=== PATIENT | male | born 1965 | race Two or more races ===

== ENCOUNTER 2018-10-08 09:57 | Emergency (ER) | payer OTHER ==
[2018-10-08 10:03] VITALS: BMI 29.2
[2018-10-08] MEDS ORDERED: ONDANSETRON 4 MG/2 ML VIAL IVPUSH ONE (10:09)
[2018-10-08] MEDS ORDERED: KETOROLAC TROMETHAMINE 30 MG/1 ML VIAL IVPUSH ONE (10:09)
[2018-10-08] MEDS ORDERED: SODIUM CHLORIDE 1,000 ML IV STA (10:09)
[2018-10-08] MEDS ORDERED: ONDANSETRON 4 MG/2 ML VIAL ONE (10:30)
[2018-10-08] MEDS ORDERED: KETOROLAC TROMETHAMINE 30 MG/1 ML VIAL ONE (10:30)
[2018-10-08 10:48] LABS: BASO % 0.9 % (0-2.0); EOS % 1.9 % (0-4.5); HEMATOCRIT 45.5 % (35.4-49); HEMOGLOBIN 16.3 GM/dL (11.7-16.9); MCH 30.8 pg (25.7-33.7); MCHC 35.8 g/dl (32.0-35.9); MEAN PLT VOLUME 7.2 fl (7.5-11.1); MONO % 4.4 % (3.8-10.2); NEUT % 63.8 % (42.8-82.8); PLATELET COUNT 189 K/MM3 (134-434); RBC 5.29 M/mm3 (4.00-5.60); RDW 13.4 % (11.9-15.9); WHITE BLOOD COUNT 7.2 K/mm3 (4.0-10.0)
[2018-10-08 11:22] LABS: ALBUMIN 4.3 g/dl (3.4-5.0); ALK PHOS 77 U/L (45-117); ANION GAP 8 MMOL/L (8-16); BILIRUBIN,TOTAL 0.9 mg/dL (0.2-1); BLOOD UREA NITROGEN 23 mg/dL (7-18); CALCIUM 8.9 mg/dL (8.5-10.1); CHLORIDE 104 mmol/L (98-107); CO2 29 mmol/L (21-32); CREATININE 1.2 mg/dL (0.55-1.3); GLUCOSE,RANDOM 128 mg/dL (74-106); POTASSIUM 4.3 mmol/L (3.5-5.1); SGOT/AST 32 U/L (15-37); SGPT/ALT 47 U/L (13-61); SODIUM 141 mmol/L (136-145); TOT PROT 7.4 g/dl (6.4-8.2); URINE APPEARANCE CLOUDY; URINE BILIRUBIN NEGATIVE (<2.0 mg/dL); URINE COLOR YELLOW; URINE GLUCOSE (UA) NEGATIVE (NEGATIVE); URINE KETONE NEGATIVE (NEGATIVE); URINE LEUK ESTERASE NEGATIVE (NEGATIVE); URINE NITRITE NEGATIVE (NEGATIVE); URINE PROTEIN 1+ (NEGATIVE); URINE UROBILINOGEN NEGATIVE mg/dL (0.2-1.0)
[2018-10-08] MEDS ORDERED: HYDROmorphone HCL CARPU-JECT 2 MG/1 ML DISP.SYRIN IVPUSH ONE (11:48)
[2018-10-08 11:57] LABS: URIC ACID CRYSTALS RARE /hpf (NONE SEEN); URINE MUCUS FEW
[2018-10-08] MEDS ORDERED: HYDROmorphone HCl 2 MG/ML VIAL ONE (12:05)
--- NOTE | 2018-10-08 12:17 | PDOC ---
History of Present Illness - General Chief Complaint: Pain, Acute Stated Complaint: KIDNEY STONE Time Seen by Provider: 10/08/18 10:08 History Source: Patient Exam Limitations: No Limitations - History of Present Illness Travel History: No Initial Comments: 10/08/18 12:10 52-year-old male presents to the emergency room for evaluation of right flank pain, dysuria and mild hematuria since this morning worsening in severity. Patient states history of right renal colic and is followed by Dr. bearden and has history of lithotripsy(2004) and stent placement (2007). Last stone was in 2011. Patient denies fever, chills with states mild nausea. Timing/Duration: reports: constant, getting worse Quality: reports: moderate, sharpness Abdominal Pain Onset Location: reports: flank Pain Radiation: reports: back Activities at Onset: reports: none Aggravating Factors: improves with: None Alleviating Factors: improves with: None Past History - Travel Traveled outside of the country in the last 30 days: No Close contact w/someone who was outside of country & ill: No - Past Medical History Allergies/Adverse Reactions: Allergies Allergy/AdvReac Type Severity Reaction Status Date / Time No Known Allergies Allergy Verified 10/08/18 10:00 Home Medications: Ambulatory Orders NK [No Known Home Medication] 10/08/18 COPD: No Disorders: Yes (renal stones) - Suicide/Smoking/Psychosocial Hx Smoking History: Unknown if ever smoked Patient Lives Alone: No Lives with/in: spouse/SO Review of Systems - Review of Systems Able to Perform ROS?: Yes Constitutional: No: Symptoms Reported HEENTM: No: Symptoms Reported Respiratory: No: Symptoms reported Cardiac (ROS): No: Symptoms Reported ABD/GI: Yes: Nausea, Abdominal cramping Musculoskeletal: No: Symptoms Reported Integumentary: No: Symptoms Reported Neurological: No: Symptoms reported Hematologic/Lymphatic: No: Symptoms Reported *Physical Exam - Vital Signs Last Vital Signs Temp Pulse Resp BP Pulse Ox 97.9 F 83 22 H 172/93 H 98 10/08/18 10:02 10/08/18 10:02 10/08/18 10:02 10/08/18 10:02 10/08/18 10:02 - Physical Exam General Appearance: Yes: Nourished, Appropriately Dressed. No: Apparent Distress HEENT: positive: EOMI. negative: Pale Conjunctivae Neck: positive: Supple Respiratory/Chest: positive: Lungs Clear, Normal Breath Sounds. negative: Respiratory Distress, Accessory Muscle Use Cardiovascular: positive: Regular Rhythm, Regular Rate. negative: Murmur Gastrointestinal/Abdominal: positive: Soft, Tenderness (rt flank) Musculoskeletal: positive: CVA Tenderness (R) Extremity: positive: Normal Capillary Refill. negative: Pedal Edema Integumentary: positive: Normal Color, Warm, Moist Neurologic: positive: Motor Strength 5/5 (ambulatory) Moderate Sedation - Procedure Monitoring Vital Signs: Procedure Monitoring Vital Signs Temperature 97.9 F 10/08/18 10:02 Pulse Rate 83 10/08/18 10:02 Respiratory Rate 22 H 10/08/18 10:02 Blood Pressure 172/93 H 10/08/18 10:02 O2 Sat by Pulse Oximetry (%) 98 10/08/18 10:02 ED Treatment Course - LABORATORY CBC & Chemistry Diagram: 10/08/18 10:38 10/08/18 10:38 - ADDITIONAL ORDERS Additional order review: Laboratory Results 10/08/18 10/08/18 10:38 10:38 Sodium 141 Potassium 4.3 Chloride 104 Carbon Dioxide 29 Anion Gap 8 BUN 23 H Creatinine 1.2 Creat Clearance w eGFR > 60 Random Glucose 128 H Calcium 8.9 Total Bilirubin 0.9 AST 32 ALT 47 Alkaline Phosphatase 77 Total Protein 7.4 Albumin 4.3 Urine Color Yellow Urine Appearance Cloudy Urine pH 5.0 Ur Specific [place] 1.024 Urine Protein 1+ H Urine Glucose (UA) Negative Urine Ketones Negative Urine Blood 3+ H Urine Nitrite Negative Urine Bilirubin Negative Urine Urobilinogen Negative Ur Leukocyte Esterase Negative Urine WBC (Auto) 1 Urine RBC (Auto) 19 Uric Acid Crystals Rare Urine Mucus Few 10/08/18 10:38 RBC 5.29 MCV 86.0 MCHC 35.8 RDW 13.4 MPV 7.2 L Neutrophils % 63.8 Lymphocytes % 29.0 Monocytes % 4.4 Eosinophils % 1.9 Basophils % 0.9 - RADIOLOGY Radiology Studies Ordered: Category Date Time Status SPIRAL- RENAL-STONE CT [CT] Stat CT Scan 10/08/18 10:09 Ordered - Medications Given in the ED: ED Medications Discontinued Medications Generic Name Dose Route Start Last Admin Trade Name Freq PRN Reason Stop Dose Admin Sodium Chloride 1,000 mls @ 1,000 mls/hr 10/08/18 10:09 10/08/18 10:10 Normal Saline - IV 10/08/18 11:08 1,000 mls/hr ASDIR STA Administration Ketorolac Tromethamine 30 mg 10/08/18 10:09 10/08/18 10:36 Toradol Injection - IVPUSH 10/08/18 10:10 30 mg ONCE ONE Administration Ondansetron HCl 4 mg 10/08/18 10:09 10/08/18 10:36 Zofran Injection IVPUSH 10/08/18 10:10 4 mg ONCE ONE Administration Medical Decision Making - Medical Decision Making 10/08/18 11:18 chief complaint: Right flank pain with nausea and dysuria since this morning. Patient history of right renal colic. Exam: Right CVA right flank tenderness. Plan IV fluids, Toradol, Zofran and urine and labs including a spiral CT. 10/08/18 12:19 Laboratory Tests 10/08/18 10/08/18 10/08/18 10:38 10:38 10:38 WBC 7.2 Hgb 16.3 Hct 45.5 MPV 7.2 L Sodium 141 Potassium 4.3 Chloride 104 Carbon Dioxide 29 Anion Gap 8 BUN 23 H Creatinine 1.2 Creat Clearance w eGFR > 60 Random Glucose 128 H Calcium 8.9 Total Bilirubin 0.9 AST 32 ALT 47 Alkaline Phosphatase 77 Total Protein 7.4 Albumin 4.3 Urine Protein 1+ H Urine Blood 3+ H Ur Leukocyte Esterase Negative Urine WBC (Auto) 1 Urine RBC (Auto) 19 Patient states feeling better after receiving Toradol and Dilaudid. Patient pending CT. 10/08/18 14:36 CT shows a nonobstructing stone within the lower pole of the right kidney. There is perinephric stranding with dilatation of the collecting system and ureter. A stone at the UVJ is noted measuring 5 mm. Patient will be given a strainer, Percocet and Flomax. Patient also recommended to follow up with Dr. Servin. Patient also with a noted patient to the right lower lobe of the liver which I have discussed with him and will follow-up with his primary care doctor for *DC/Admit/Observation/Transfer Diagnosis at time of Disposition: Renal colic on right side - Discharge Dispostion Disposition: HOME Condition at time of disposition: Good - Referrals Referrals: Stephan Velasquez MD [Staff Physician] - - Patient Instructions Printed Discharge Instructions: Kidney Stones -- Adult Additional Instructions: Please drink at least 2-3 L of water on a daily basis. Please take Flomax as prescribed and follow up with your urologist. Please also strain your urine - Post Discharge Activity
[2018-10-08 13:54] VITALS: BP 122/63; PULSE 72; TEMP 97.8
== END 2018-10-08 14:20 | disposition home or self-care (01) ==
LOC: JER 09:57
PROC: 3E0337Z Introduction of Electrolytic and Water Balance Substance into Peripheral Vein, Percutaneous Approach (ICD-10-PCS; principal; 2018-10-08)
PROC: 3E033NZ Introduction of Analgesics, Hypnotics, Sedatives into Peripheral Vein, Percutaneous Approach (ICD-10-PCS; 2018-10-08)
PROC: 3E033GC Introduction of Other Therapeutic Substance into Peripheral Vein, Percutaneous Approach (ICD-10-PCS; 2018-10-08)
PROC: 3E0333Z Introduction of Anti-inflammatory into Peripheral Vein, Percutaneous Approach (ICD-10-PCS; 2018-10-08)
DX: N20.0 Calculus of kidney (principal); Z87.442 Personal history of urinary calculi
CPT/HCPCS: 36415; 74176; 80053; 81003; 81015; 85025; 87086; 99282-25; J7030